=== PATIENT | female | born 1985 | race African-American/Black ===

== ENCOUNTER 2024-12-04 15:20 | Inpatient (IN) | payer MEDICAID, OTHER ==
[~2024-12-04] VITALS: Ht 160 cm; Wt 36.5 kg
--- NOTE | 2024-12-04 15:28 | ED.PDOC ---
History of Present Illness HPI Comments 39 year old female presents to the ED via EMS with a chief complaint of vaginal bleeding onset today (12/04/24). Per EMS, patient was at home, patient's boyfriend noticed patient had a diaper full of blood, blood was noticed on bed. Patient has PMHx bladder cancer, stage 4, received chemotherapy yesterday at [place], she goes 2 times a week every other week. Patient has been losing weight, according to boyfriend, last full meal was about 3 weeks ago. EMS also states patient appeared altered, confused. Upon ED arrival, patient is tachycardiac with 130 bpm. Denies chest pain, dizziness, nausea, vomiting, diarrhea, fevers. No other symptoms or modifying factors present at this time. 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 History Family History Family History: Reviewed,noncontributory to illness, No family hx of Cancer, No family hx of DM, No family hx of Heart attila, No family hx of HTN, No family hx ofKidney attila, No family hx of Liver attila, No family hx of Lung attila, No family hx of Stroke Social History Smoker: Non-Smoker Alcohol: Denies ETOH Use Drugs: Denies Drug Use Lives In: Home Constitutional: denies: chills, diaphoresis, fatigue, fever, malaise, sweats, weakness, others EENTM: denies: blurred vision, double vision, ear bleeding, ear discharge, ear drainage, ear pain, ear ringing, eye pain, eye redness, hearing loss, mouth pain, mouth swelling, nasal discharge, nose bleeding, nose congestion, nose pain, photophobia, tearing, throat pain, throat swelling, voice changes, others Respiratory: denies: cough, hemoptysis, orthopnea, SOB at rest, shortness of breath, SOB with excertion, stridor, wheezing, others Cardiovascular: denies: chest pain, dizzy spells, diaphoresis, Dyspnea on exertion, edema, irregular heart beat, left arm pain, lightheadedness, palpitations, PND, syncope, others Gastrointestinal: denies: abdomen distended, abdominal pain, blood streaked bowels, constipated, diarrhea, dysphagia, difficulty swallowing, hematemesis, melena, nausea, poor appetite, poor fluid intake, rectal bleeding, rectal pain, vomiting, others Genitourinary: reports: abnormal vagina bleeding; denies: burning, dyspareunia, dysuria, flank pain, frequency, hematuria, incontinence, pain, , vagina discharge, urgency, others Neurological: denies: dizziness, fainting, headache, left sided numbness, left sided weakness, numbness, paresthesia, pre-existing deficit, right sided numbness, right sided weakness, seizure, speech problems, tingling, tremors, weakness, others Musculoskeletal: reports: others (LT leg swelling); denies: back pain, gout, joint pain, joint swelling, muscle pain, muscle stiffness, neck pain Integumetry: denies: bruises, change in color, change in hair/nails, dryness, laceration, lesions, lumps, rash, wounds, others Allergic/Immunocompromised: denies: Difficulty Healing, Frequent Infections, Hives, Itching, others Hematologic/Lymphatic: denies: anemia, blood clots, easy bleeding, easy bruising, swollen glands, others Endocrine: denies: excessive hunger, excessive sweating, excessive thirst, excessive urination, flushing, intolerance to cold, intolerance to heat, unexplained weight gain, unexplained weight loss, others Psychiatric: denies: anxiety, bipolar disorder, depression, hopeless, panic disorder, schizophrenia, sleepless, suicidal, others All Other Systems: Reviewed and Negative Physical Exam General Appearance: Thin HEENT: Normal ENT Inspection, Pharynx Normal, TMs Normal Neck: Full Range of Motion, Non-Tender, Normal, Normal Inspection Respiratory: Chest Non-Tender, Lungs Clear, No Accessory Muscle Use, No Respiratory Distress, Normal Breath Sounds Cardiovascular: No Edema, No JVD, No Murmur, No Gallop, Normal Peripheral Pulses, Regular Rate/Rhythm Breast Exam: Deferred Gastrointestinal: No Organomegaly, Non Tender, No Pulsatile Mass, Normal Bowel Sounds, Soft Genitalia: Deferred Pelvic: Deferred Rectal: Deferred Extremities: No calf tenderness, Normal capillary refill, No pedal edema, Swelling (Left lower extremity) Musculoskeletal : Apperance: Normal Neurologic: Alert, vertical mill operator II-XII nml as Tested, No Motor Deficits, Normal Affect, Normal Mood, No Sensory Deficits Cerebellar Function: NOT DONE Reflexes: NOT DONE Skin: Dry, Normal Color, Warm Peripheral Pulses: 3+ Radial (R), 3+ Radial (L) Lymphatic: No Adenopathy Was a procedure done? Was a procedure done?: No EKG EKG : Pulse Rate (adult): 130 Cardiac Rhythm: ST Differential Dx Considerations may include: Sepsis Electrolyte imbalance X-Ray, Labs, Meds, VS Vital Signs Date Time Temp Pulse Resp B/P (MAP) Pulse Ox O2 Delivery O2 Flow Rate FiO2 12/04/24 15:40 96 11 99 Room Air* 0 21 12/04/24 15:29 98.9 136 22 103/97 98 98.9 12/04/24 15:28 130 12/04/24 15:23 130 Lab Test 12/04/24 15:50 Range/Units White Blood Count 36.7 *H 4.4-10.8 10^3/uL Red Blood Count 3.03 L 4.0-5.20 10^6/uL Hemoglobin 7.9 L 12.2-16.2 g/dL Hematocrit 26.4 L 36.0-46.0 % Mean Corpuscular Volume 87.3 80.0-100.0 fL Mean Corpuscular Hemoglobin 26.2 L 28.0-32.0 pg Mean Corpuscular Hemoglobin Concent 30.0 L 32.0-36.0 g/dL Red Cell Distribution Width 17.8 H 11.8-14.3 % Platelet Count 723 H 140-450 10^3/uL Mean Platelet Volume 6.8 L 6.9-10.8 fL Neutrophils (%) (Auto) 37.0-80.0 % Lymphocytes (%) (Auto) 10.0-50.0 % Monocytes (%) (Auto) 0.0-12.0 % Basophils (%) (Auto) 0.0-2.0 % Neutrophils # (Auto) 1.6-8.6 10 ^3/uL Lymphocytes # (Auto) 0.4-5.4 10 ^3/uL Monocytes # (Auto) 0-1.3 10 ^3/uL Differential Total Cells Counted Pending Neutrophils % (Manual) Pending Band Neutrophils % (Manual) Pending Lymphocytes % (Manual) Pending Monocytes % (Manual) Pending Eosinophils % (Manual) Pending Basophils % (Manual) Pending Metamyelocytes % (manual) Pending Myelocytes % (Manual) Pending Promyelocytes % (Manual) Pending Blast Cells % (Manual) Pending Reactive Lymphocytes Pending Platelet Estimate Pending Sodium Level 134 L 136-145 mmol/L Potassium Level 3.9 3.5-5.1 mmol/L Chloride Level 110 H 98-107 mmol/L Carbon Dioxide Level 15 L 20-31 mmol/L Anion Gap 9 5-15 Blood Urea Nitrogen 33 H 9-23 mg/dL Creatinine 2.16 H 0.550-1.02 mg/dL Glomerular Filtration Rate Calc 29 >90 mL/min BUN/Creatinine Ratio 15.3 10.0-20.0 Serum Glucose 73 L 74-106 mg/dL Lactic Acid Level 2.2 *H 0.4-2.0 mmol/L Calcium Level 10.6 H 8.7-10.4 mg/dL Current Medications Medications (Trade) Dose Ordered Sig/Fred Route Start Time Stop Time Status Last Admin Ceftriaxone Sodium 50 ml @ 100 mls/hr ONCE ONCE IV 12/04/24 15:30 12/04/24 16:00 DC 12/04/24 16:05 Clindamycin Phosphate 50 ml @ 50 mls/hr ONCE ONCE IV 12/04/24 15:30 12/04/24 16:29 DC 12/04/24 16:05 Sodium Chloride 1,000 ml @ 1,000 mls/hr Q1H ONCE IV 12/04/24 15:30 12/04/24 16:29 DC 12/04/24 16:06 Patient answering questions. Tachycardia. Possible sepsis. Establish intravenous access. Was given fluids. Sepsis protocol. Failure to thrive. Reviewed her history. Continue to monitor. Time of 1ST Reevaluation: 15:50 Reevaluation 1ST: Unchanged Patient Education/Counseling: Diagnosis, Treatment, Prognosis Family Education/Counseling: No Family Present SEPSIS Sepsis Screen Physician Orders Blood Culture (12/04/24 15:22) Complete Blood Count (12/04/24 15:22) Chest Portable (12/04/24 15:28) Urinalysis (12/04/24 15:22) Sodium Chloride 0.9% (12/04/24 15:30) Electrocardigram (12/04/24 15:26) Manual Differential (12/04/24 15:50) Vital Signs Date Time Temp Pulse Resp B/P (MAP) Pulse Ox O2 Delivery O2 Flow Rate FiO2 12/04/24 15:40 96 11 99 Room Air* 0 21 12/04/24 15:29 98.9 136 22 103/97 98 98.9 12/04/24 15:28 130 12/04/24 15:23 130 Laboratory Tests Test 12/04/24 15:50 Lactic Acid Level 2.2 mmol/L (0.4-2.0) *H White Blood Count 36.7 10^3/uL (4.4-10.8) *H Medications Medications Dose Ordered Sig/Fred Route Start Time Stop Time Status Last Admin Dose Admin Ceftriaxone Sodium 50 ml @ 100 mls/hr ONCE ONCE IV 12/04/24 15:30 12/04/24 16:00 DC 12/04/24 16:05 Clindamycin Phosphate 50 ml @ 50 mls/hr ONCE ONCE IV 12/04/24 15:30 12/04/24 16:29 DC 12/04/24 16:05 Sodium Chloride 1,000 ml @ 1,000 mls/hr Q1H ONCE IV 12/04/24 15:30 12/04/24 16:29 DC 12/04/24 16:06 Departure 1 Departure Time of Disposition: 15:36 Impression: Primary Impression: Failure to thrive Qualified Codes: R62.7 - Adult failure to thrive Additional Impression: Sepsis, unspecified organism Qualified Codes: A41.9 - Sepsis, unspecified organism Disposition: ADMITTED INPATIENT Admit to: Med Surg Condition: Guarded Critical Care Note Critical Care Time?: Yes (90 min-critical care time only) Stability Stability form required: No Heart Score Heart Score: Heart Score Response (Comments) Value History N/A 0 EKG N/A 0 Age N/A 0 Risk Factors N/A 0 Troponin N/A 0 Total 0 I personally scribed for SU BOLIVAR MD ([email or web address]) on 12/04/24 at 15:28. Electronically submitted by Mary Alarcon ([email or web address]). SU BOLIVAR MD Dec 04, 2024 15:28
[2024-12-04 15:40] VITALS: PULSE 96; RESP 11; O2SAT 99
--- NOTE | 2024-12-04 15:59 | DVH ---
CHEST RADIOGRAPH Indication: sob Technique: Single frontal view of the chest was obtained Comparison: None FINDINGS: Lines and Tubes: None Lungs: No focal consolidation. Pleura: No effusion. No pneumothorax. Cardiomediastinal contours: Unremarkable Bones: No acute osseous abnormality. IMPRESSION: 1. No acute cardiopulmonary disease.
[2024-12-04] MEDS: cefTRIAXone 1GM/50ML D5W 50 ML IV ONE (16:05)
[2024-12-04] MEDS: CLINDAMYCIN 300MG IV 50 ML IV ONE (16:05)
[2024-12-04] MEDS: SODIUM CHLORIDE 0.9% 1,000 ML IV ONE ×3 (16:06→21:10)
[2024-12-04 16:15] LABS: Hematocrit 26.4 % (36.0-46.0); Hemoglobin 7.9 g/dL (12.2-16.2); Mean Corpuscular Hemoglobin 26.2 pg (28.0-32.0); Mean Corpuscular Volume 87.3 fL (80.0-100.0)
[2024-12-04 16:19] LABS: Potassium 3.9 mmol/L (3.5-5.1)
[2024-12-04 16:20] LABS: Anion Gap 9 (5-15); Calcium 10.6 mg/dL (8.7-10.4); Carbon Dioxide 15 mmol/L (20-31); Chloride 110 mmol/L (98-107); Sodium 134 mmol/L (136-145)
[2024-12-04 16:25] LABS: BUN/Creatinine Ratio 15.3 (10.0-20.0)
[2024-12-04 16:31] LABS: Blood Urea Nitrogen 33 mg/dL (9-23); Glucose 73 mg/dL (74-106)
[2024-12-04 16:33] LABS: Lactic Acid w/Reflex 2.2 mmol/L (0.4-2.0)
[2024-12-04 18:39] LABS: Total Cells Counted 100.0 (100)
--- NOTE | 2024-12-04 19:21 | DVH ---
LEFT lower extremity venous duplex Clinical History: dvt Comparison: None Technique: Duplex Doppler evaluation of the deep venous systems of LEFT lower extremities from the common femora l veins to the popliteal veins including color Doppler and spectral/pulsed waveform analysis was perf ormed. Findings: LEFT SIDE: LEFT INGUINAL AREAS A LARGE COMPLEX MASS MEASURING 6 x 5.5 x 3.1 cm. May represent a hematoma. Dr. Carlos estes is aware of the findings. The common femoral vein demonstrates nonocclusive thrombus in the left inguinal area compressing comm on femoral vein. Blood flow demonstrates rouleaux flow There is compressibility/patency of the great saphenous vein at the proximal thigh. The femoral vein demonstrates appropriate compressibility and waveform variability. The deep femoral vein demonstrates appropriate compressibility and waveform variability. The popliteal vein demonstrates appropriate compressibility and waveform variability. There is normal compressibility at the tibioperoneal trunk. Impression: 1. No left femoropopliteal venous thrombosis. 2. Large 6 x 5.3 x 3.1 cm complex mass anterior medial to the left common femoral vein. 3. Dr. Bear is aware of findings.
[2024-12-04 19:50] VITALS: PULSE 100; RESP 12; O2SAT 90
[2024-12-05] MEDS: SODIUM CHLORIDE 0.9% 1,000 ML IV ONE (00:08)
--- NOTE | 2024-12-05 00:56 | DVHHPRES ---
History of Present Illness Resident Creating Document: SELMA CHEN RESIDENT History of Present Illness Joyce Santo is a 39 year old female, with past medical history of bladder carcinoma (Stage 4) and DVT. The patient was brought to the ED via EMS with a chief complaint of 1 day of abundant vaginal bleeding with concomitant general weakness, lethargy and confusion. The patient is a poor historian. Per EMS, patient was at home, patient's boyfriend noticed patient had a diaper full of blood, blood was noticed on bed. The patient is received chemotherapy twice a week at [facility]. The patient denies fever, nausea, vomiting, diarrhea, sick contacts or other symptoms. On initial evaluation in the ED the patient was found tachycardiac HR 130 bpm, WBC: 36.7x10e3/ul, Lactic acid 2.2, Hb 7.9mg/dl. Ms. Ernst is a [facility] patient, the [facility]'s ER staff requested authorization to admit the patient to [facility] due to her unstable condition (Authorization [id number]). Past Medical History Bladder carcinoma, Stage 4 Past Surgical History: Other (Bladder surgery due to bladder carcinoma. ) Family History: None Smoke: No ALCOHOL: none Drugs: None Lives: with Family Review of Systems Constitutional: Yes: Weakness, Malaise; No: Fever, Chills, Sweats, Other Eyes: No: Pain, Vision change, Conjunctivae inflammation, Eyelid inflammation, Other, Redness ENT: No: Ear pain, Ear discharge, Nose pain, Nose discharge, Nose congestion, Mouth pain, Mouth swelling, Throat pain, Throat swelling, Other Respiratory: No: Cough, Dry, Shortness of breath, SOB with excertion, Wheezing, Hemoptysis, Pleuritic Pain, Sputum, Wheezing, Other Cardiovascular: No: Chest Pain, Palpitations, Orthopnea, Paroxysmal Noc. Dyspnea, Edema, Lt Headedness, Other Gastrointestinal: No: Nausea, Vomiting, Abdominal Pain, Diarrhea, Constipation, Melena, Hematochezia, Other Genitourinary: No Dysuria, No Frequency, No Incontinence, No Hematuria, No Retention; Other (Vaginal bleeding) Musculoskeletal: No: other, neck pain, shoulder pain, arm pain, back pain, hand pain, leg pain, foot pain Skin: No: Rash, Lesions, Jaundice, Bruising, Other Neurological: Weakness, Confusion; No: Numbness, Incoordination, Change in speech, Seizures, Other Allergies: Coded Allergies: NO KNOWN ALLERGIES (Unverified , 12/04/24) Medications Current Medications Medications Dose Ordered Sig/Fred Route Start Time Stop Time Status Last Admin Dose Admin Pantoprazole Sodium 40 mg DAILY IV 12/05/24 10:00 Exam Vital Signs Vital Signs Date Time Temp Pulse Resp B/P (MAP) Pulse Ox O2 Delivery O2 Flow Rate FiO2 12/04/24 20:00 94 12/04/24 19:50 98.5 10 98/61 (73) 100 98.5 12/04/24 19:50 Room Air* 0 21 General Appearance: Alert, mild distress, Other (oriented in person only. ) HEENT: Atraumatic, Mucous membr. moist/pink Respiratory: Clear to auscultation, Normal air movement Cardiovascular: Regular rate, Normal S1, Normal S2, No murmurs Abdominal: Normal bowel sounds, Soft, No tenderness, No hepatospenomegaly Extremities: No clubbing, No cyanosis, No edema, Normal pulses Skin: No rashes, No breakdown Neuro: Other (Cofused, does not follows directions. ) Psych/Mental Status: Other (altered metal status, lethargic, responds to name, but does not follows directions. ) Labs/Xrays Labs Test 12/04/24 23:59 12/04/24 18:02 12/04/24 15:50 Range/Units Lactic Acid Level 1.2 0.4-2.0 mmol/L White Blood Count 36.7 *H 4.4-10.8 10^3/uL Red Blood Count 3.03 L 4.0-5.20 10^6/uL Hemoglobin 7.9 L 12.2-16.2 g/dL Hematocrit 26.4 L 36.0-46.0 % Mean Corpuscular Volume 87.3 80.0-100.0 fL Mean Corpuscular Hemoglobin 26.2 L 28.0-32.0 pg Mean Corpuscular Hemoglobin Concent 30.0 L 32.0-36.0 g/dL Red Cell Distribution Width 17.8 H 11.8-14.3 % Platelet Count 723 H 140-450 10^3/uL Mean Platelet Volume 6.8 L 6.9-10.8 fL Neutrophils (%) (Auto) 37.0-80.0 % Lymphocytes (%) (Auto) 10.0-50.0 % Monocytes (%) (Auto) 0.0-12.0 % Basophils (%) (Auto) 0.0-2.0 % Neutrophils # (Auto) 1.6-8.6 10 ^3/uL Lymphocytes # (Auto) 0.4-5.4 10 ^3/uL Monocytes # (Auto) 0-1.3 10 ^3/uL Differential Total Cells Counted 100.0 100 Neutrophils % (Manual) 68 37.0-80.0 Band Neutrophils % (Manual) 19 Lymphocytes % (Manual) 7 L 10.0-50.0 Monocytes % (Manual) 6 0-12 Eosinophils % (Manual) 0 0-7 Basophils % (Manual) 0 0.0-2.0 Metamyelocytes % (manual) 0 Myelocytes % (Manual) 0 Promyelocytes % (Manual) 0 Blast Cells % (Manual) 0 Reactive Lymphocytes 0 Platelet Estimate Increased Sodium Level 134 L 136-145 mmol/L Potassium Level 3.9 3.5-5.1 mmol/L Chloride Level 110 H 98-107 mmol/L Carbon Dioxide Level 15 L 20-31 mmol/L Anion Gap 9 5-15 Blood Urea Nitrogen 33 H 9-23 mg/dL Creatinine 2.16 H 0.550-1.02 mg/dL Glomerular Filtration Rate Calc 29 >90 mL/min BUN/Creatinine Ratio 15.3 10.0-20.0 Serum Glucose 73 L 74-106 mg/dL Calcium Level 10.6 H 8.7-10.4 mg/dL SEPSIS Sepsis Screen Date sepsis recognized/suspect: Dec 04, 2024 Time Sepsis recognized/suspect: 1555 Recent Procedure: No On Antibiotic Therapy: Yes Respiratory Rate >20: No Heart Rate >90: Yes Temp<36 C (96.8 F) or >38.3 C: No SBP <90 or MAP <65 mmHG: No New Acute Mental Status Change: Yes Is the patient on CPAP, BIPAP,: No Physician Orders Lt Lower Dvt (12/04/24 18:01) Admit (12/04/24 23:42) Code Status (12/04/24 23:42) Vital Signs .PER UNIT PROTOCOL (12/04/24 23:42) Review Orders With Adm. (12/04/24 23:42) Maintain Bed Rest (12/04/24 23:42) Regular Diet (12/05/24 Breakfast) Notify Md Of Changes From Base (12/04/24 23:42) Advance Directive (12/04/24 23:42) Patient Condition (12/04/24 23:42) Allergies (12/04/24 23:42) Notify Md Of Changes From Base (12/04/24 23:42) Arrt Technologist For 24 Hours (12/04/24 23:42) Pantoprazole (Protonix) (12/05/24 10:00) Urine Bacterial Culture (12/04/24 23:42) Covid19 Antigen Autumn (12/04/24 ) Rapid Influenza A&B (12/04/24 23:42) Strict I&O (12/04/24 ) Sodium Chloride 0.9% (12/04/24 23:45) Ammonia (12/04/24 23:42) Vital Signs Date Time Temp Pulse Resp B/P (MAP) Pulse Ox O2 Delivery O2 Flow Rate FiO2 12/04/24 20:00 94 12/04/24 19:50 98.5 100 10 98/61 (73) 100 98.5 12/04/24 19:50 100 12 90 Room Air* 0 21 12/04/24 18:00 100 10 98/61 (73) 100 Laboratory Tests Test 12/04/24 15:50 12/04/24 18:02 Lactic Acid Level 2.2 mmol/L (0.4-2.0) *H 1.2 mmol/L (0.4-2.0) White Blood Count 36.7 10^3/uL (4.4-10.8) *H Medications Medications Dose Ordered Sig/Fred Route Start Time Stop Time Status Last Admin Dose Admin Ceftriaxone Sodium 50 ml @ 100 mls/hr ONCE ONCE IV 12/04/24 15:30 12/04/24 16:00 DC 12/04/24 16:05 100 MLS/HR Clindamycin Phosphate 50 ml @ 50 mls/hr ONCE ONCE IV 12/04/24 15:30 12/04/24 16:29 DC 12/04/24 16:05 50 MLS/HR Sodium Chloride 1,000 ml @ 75 mls/hr [id number] ONCE IV 12/04/24 23:45 12/05/24 13:04 12/05/24 00:08 75 MLS/HR Sodium Chloride 1,000 ml @ 150 mls/hr [id number] ONCE IV 12/04/24 15:30 12/04/24 22:09 DC 12/04/24 21:10 150 MLS/HR Sodium Chloride 1,000 ml @ 1,000 mls/hr Q1H ONCE IV 12/04/24 15:30 12/04/24 16:29 DC 12/04/24 16:06 1,000 MLS/HR Sodium Chloride 1,000 ml @ 1,000 mls/hr Q1H ONCE IV 12/04/24 18:15 12/04/24 19:14 DC 12/04/24 18:19 1,000 MLS/HR Assessment/Plan Assessment/Plan #Severe Sepsis, with AOD, unspecified organism. WBC 36.7x10e3/ul Tachycardic Lactic acid 2.1 IV fluids Unasyn IV Clindamycin IV Blood cultures Urine cultures #CHUY due to VMN Creatinine:2.16 BUN 33 Avoid nephrotoxic drugs IV fluids Monitor Creatinine and BUN #Severe anemia HB 7.9 Type and screen H&H CBC #DVT ruled out Doppler US negative for thrombosis. #Bladder Carcinoma Stage 4 Receiving chemotherapy at [facility]. NPO diet Eliquist on hold due to vaginal bleeding PUD prophylaxis Protonic Goals of care discussed with the patient > 35 min. Discussed plan of care with Dr. Gupta Code status: Full code PCP: At [facility], no remember the name Plan discussed with: Patient, the patient agrees with the plan. Plan discussed with: Patient My Orders Orders - SELMA CHEN RESIDENT Procedure Category Date Status Time Admit ADMIT 12/04/24 Transmitted 23:42 Code Status CODE 12/04/24 Transmitted 23:42 Vital Signs MONICO 12/04/24 In Process 23:42 Review Orders With MONICO 12/04/24 In Process Adm. 23:42 Maintain Bed Rest MONICO 12/04/24 In Process 23:42 Regular Diet DIET 12/05/24 Transmitted Breakfast Notify Md Of Changes MONICO 12/04/24 In Process From Base 23:42 Advance Directive MONICO 12/04/24 In Process 23:42 Patient Condition ORDERS 12/04/24 Transmitted 23:42 Allergies MONICO 12/04/24 In Process 23:42 Notify Md Of Changes MONICO 12/04/24 In Process From Base 23:42 Arrt Technologist For MONICO 12/04/24 In Process 24 Hours 23:42 Pantoprazole PHA 12/05/24 In Process (Protonix) 10:00 Urine Bacterial HODAN 12/04/24 Logged Culture 23:42 Covid19 Antigen [facility] LAB 12/04/24 Logged Rapid Influenza A&B LAB 12/04/24 Logged 23:42 Strict I&O ED NURSING 12/04/24 Transmitted Sodium Chloride 0.9% PHA 12/04/24 In Process 23:45 Ammonia LAB 12/04/24 In Process 23:42 Billing Provider: SANIYA GUPTA MD Common Visit Codes: [id number] INP/OBS CARE (HIGH) Secondary Visit Codes: [id number] CARE PLAN 30 MINUTES SELMA CHEN RESIDENT Dec 05, 2024 00:56
[2024-12-05] MEDS: D5W 5% 1,000 ML IV SCH (01:47)
[2024-12-05] MEDS: AMPICILLIN & SULBACTAM SODIUM 3 GM in SODIUM CHL 0.9% 100 ML IV SCH (09:09)
[2024-12-05] MEDS: CLINDAMYCIN 300MG IV 50 ML IV SCH (09:16)
[2024-12-05 09:38] LABS: Hematocrit 25.1 % (36.0-46.0); Hemoglobin 7.4 g/dL (12.2-16.2); Mean Corpuscular Hemoglobin 26.6 pg (28.0-32.0); Mean Corpuscular Volume 90.9 fL (80.0-100.0); Nucleated Red Blood Cells % 0.1 %
[2024-12-05 09:53] LABS: Alkaline Phosphatase 113 U/L (46-116); Anion Gap 9 (5-15); BUN/Creatinine Ratio 15.2 (10.0-20.0); Calcium 10.2 mg/dL (8.7-10.4); Potassium 3.8 mmol/L (3.5-5.1); Sodium 137 mmol/L (136-145); Total Protein 6.1 g/dL (5.7-8.2)
[2024-12-05 09:56] LABS: Alanine Aminotransferase < 9 U/L (7-40); Albumin 2.5 g/dL (3.2-4.8); Bilirubin, Total 0.2 mg/dL (0.2-1.0); Blood Urea Nitrogen 29 mg/dL (9-23); Carbon Dioxide 13 mmol/L (20-31); Chloride 115 mmol/L (98-107); Glucose 65 mg/dL (74-106)
[2024-12-05] MEDS: PANTOPRAZOLE 40 MG/10 ML VIAL INJ IV SCH (09:59)
[2024-12-05 11:21] LABS: COVID19 ANTIGEN SOFIA FIA NEGATIVE (NEGATIVE)
[2024-12-05 11:51] VITALS: PULSE 90; RESP 12; O2SAT 98
--- NOTE | 2024-12-05 12:52 | DVHPN2 ---
Reviewed: Care Plan, H&P, Labs, Medications, Previous Orders, Radiology Changes from previous H/P or p: No Changes, Changes Eyes: No Pain, No Vision change, No Conjunctivae inflammation, No Eyelid inflammation, No Other, No Redness ENT: No Ear pain, No Ear discharge, No Nose pain, No Nose discharge, No Nose congestion, No Mouth pain, No Mouth swelling, No Throat pain, No Throat swelling, No Other Cardiovascular: No Chest Pain, No Palpitations, No Orthopnea, No Paroxysmal Noc. Dyspnea, No Edema, No Lt Headedness, No Other Respiratory: No Cough, No Dry, No Shortness of breath, No SOB with excertion, No Wheezing, No Hemoptysis, No Pleuritic Pain, No Sputum, No Other Gastrointestinal: No Nausea, No Vomiting, No Abdominal Pain, No Diarrhea, No Constipation, No Melena, No Hematochezia, No Other Genitourinary: No Dysuria, No Frequency, No Incontinence, No Hematuria, No Retention; Other (Vaginal bleeding) Musculoskeletal: No other, No neck pain, No shoulder pain, No arm pain, No back pain, No hand pain, No leg pain, No foot pain Skin: No Rash, No Lesions, No Jaundice, No Bruising, No Other Objective Vitals Vital Signs Date Time Temp Pulse Resp B/P (MAP) Pulse Ox O2 Delivery O2 Flow Rate FiO2 12/05/24 11:51 90 12 98 Room Air* 0 21 12/05/24 11:00 94/67 (76) 12/04/24 19:50 98.5 98.5 Intake/Output Intake and Output 12/05/24 07:00 Intake Total 1100 ml Balance 1100 ml Intake IV Total 1100 ml Medications Current Medications Medications Dose Ordered Sig/Fred Route Start Time Stop Time Status Last Admin Dose Admin Pantoprazole Sodium 40 mg DAILY IV 12/05/24 10:00 12/05/24 09:59 40 MG Dextrose 1,000 ml @ 75 mls/hr [id number] IV 12/05/24 01:00 12/05/24 01:47 75 MLS/HR Ampicillin Sodium/ Sulbactam Sodium 3 gm/Sodium Chloride 100 ml @ 100 mls/hr Q12H IV 12/05/24 03:30 Clindamycin Phosphate 50 ml @ 50 mls/hr Q8HR IV 12/05/24 06:00 12/05/24 09:16 50 MLS/HR Laboratory Results Laboratory Tests 12/05/24 09:20 Chemistry Test 12/04/24 15:50 12/05/24 09:20 Calcium Level 10.6 mg/dL (8.7-10.4) H 10.2 mg/dL (8.7-10.4) Albumin 2.5 g/dL (3.2-4.8) L Total Protein 6.1 g/dL (5.7-8.2) LFT Test 12/05/24 09:20 Alanine Aminotransferase (ALT) < 9 U/L (7-40) Alkaline Phosphatase 113 U/L (46-116) Aspartate Amino Transferase (AST) 14 U/L (13-40) Total Bilirubin 0.2 mg/dL (0.2-1.0) Labs and/or images reviewed: Labs reviewed by me, Image(s) reviewed by me Assessment/Plan Assessment/Plan Severe sepsis unknown etiology: Blood cultures urine cultures continue Unasyn and clindamycin CHUY due to VMN Severe anemia hemoglobin 7.9 History of stage IV bladder cancer under chemo at [place] urology consult by Dr. Larson Acute lactic acidosis with lactic acid 2.2 Vaginal bleeding consult for Patient not stable for transfer to [facility] as the patient currently has severe sepsis Check serum beta HCG Plan discussed with: Patient My Orders Orders - LESA REID MD Procedure Category Date Status Time Communication Order ORDERS 12/05/24 Verified 12:44 Date of Service: Dec 05, 2024 Billing Provider: LESA REID MD Common Visit Codes: [id number] INP/OBS CARE(HIGH) LESA REID MD Dec 05, 2024 12:52
[2024-12-05] MEDS: HYDROcodone-ACET 10/325MG TAB PO PRN (13:48)
[2024-12-05 16:21] LABS: Urine Protein, UAD Negative (Negative)
[2024-12-05 19:30] VITALS: PULSE 96; RESP 16; O2SAT 99
--- NOTE | 2024-12-05 21:05 | DVH ---
CT BRAIN WITHOUT CONTRAST HISTORY: ALOC TECHNIQUE: Axial scans were obtained from the skull base through the vertex without contrast. Sagitta l and coronal reformats were generated. One or more of the following radiation dose reduction techniq ues were used for this examination: automated exposure control, adjustment of the mA and/or kV accord ing to patient size, use of iterative reconstruction technique. COMPARISON: None FINDINGS: No acute intracranial hemorrhage or evidence of large vessel territorial infarction identified at thi s time. No midline shift. The basilar cisterns are patent. Lopez-white differentiation appears relat ively preserved. The visualized paranasal sinuses and mastoid air cells are clear. No grossly displaced calvarial abno rmalities identified. IMPRESSION: No acute intracranial findings.
--- NOTE | 2024-12-05 21:32 | DVHINCON2 ---
REASON FOR CONSULTATION: Vaginal bleeding. HISTORY OF PRESENT ILLNESS: The patient is a 39-year-old 1, para 1. who presented to the Emergency Room with 1-day onset of heavy vaginal bleeding. The patient has bladder cancer stage IV and DVT. The patient is on Eliquis. 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 The patient recently had chemo. The patient belongs to [facility], but due to sepsis, the patient is being admitted. Family is by bedside. History is obtained from family who do not know everything about the patient. The patient is also in isolation. According to the family, her last Pap was many years ago. PAST MEDICAL HISTORY: Bladder cancer, DVT. PAST SURGICAL HISTORY: According to the family, some surgery on bladder. OBSTETRIC AND GYNECOLOGIC HISTORY: One normal vaginal delivery. FAMILY HISTORY: Not applicable. ALLERGIES: No known drug allergies. REVIEW OF SYSTEMS: Consistent with HPI. PHYSICAL EXAMINATION: VITAL SIGNS: Stable, afebrile. GENERAL APPEARANCE: The patient is confused. CARDIOVASCULAR: Tachy, regular. LUNGS: Clear to auscultation. ABDOMEN: Soft, nontender. PELVIC: Some vaginal bleeding noted. Does not appear to be excessive at this point. EXTREMITIES: No clubbing, cyanosis, or edema. IMPRESSION: * Bladder cancer, stage IV. * DVT, on Eliquis. * Vaginal bleeding due to Eliquis. RECOMMENDATION: The patient has complex medical and oncological history. The patient needs to be receiving supportive care at this point. Recommend the patient to be under Oncology care. At this point, in order to stop the bleeding, the patient needs to be off Eliquis. Recommend pelvic ultrasound. Thank you very much for this consultation. DO MORRIS Rose TID: [id number] RECEIPT: [id number]
[2024-12-06] VITALS (8 sets, daily range): BP systolic 98–110; BP diastolic 63–81; PULSE 80–101; RESP 11–20; TEMP 97.5–98; O2SAT 98–100
[2024-12-06] MEDS: D5W 5% 1,000 ML IV STA ×2 (03:27→03:28)
[2024-12-06] MEDS: D5W 5% 500 ML IV STA ×2 (03:29→04:17)
[2024-12-06] MEDS ORDERED: DEXTROSE (50%) 50ML SYRG IV PRN (03:30)
[2024-12-06] MEDS: ALBUMIN 25% 100 ML IV ONE (03:36)
[2024-12-06] MEDS: InsuLIN REG 1unit/0.01ml Soln (100units/ml) SC SCH (04:00)
[2024-12-06] MEDS: ACCU-CHEK COMFORT CURVE STRIP VI SCH (04:16)
--- NOTE | 2024-12-06 09:11 | DVHPN2 ---
Visit Coding OBGYN Date of Service: Dec 05, 2024 Billing Provider: JEFF HENDERSON DO AUTOGRAPHER Common Visit Codes: [id number] SAME DATE (HIGH) AUTOGRAPHER Consultation Codes: [id number] CONSULT <110MIN JEFF HENDERSON DO Dec 06, 2024 09:11
[2024-12-06] MEDS: AMPICILLIN & SULBACTAM SODIUM 3 GM in SODIUM CHL 0.9% 100 ML IV SCH (09:12)
--- NOTE | 2024-12-06 11:32 | DVHINCON2 ---
Date of service: Dec 06, 2024 Referring Physician hospitalist Reason for Consultation bladder cancer History of Present Illness History Source: Patient, RN Notes, MD Notes, Old Records Exam Limitations: Clinical condition HPI 39 yo female with stage IV bladder cancer (dx 07/2024, no records available for review) presented with gross hematuria and/or vaginal bleed. HX of recurrent UTIs and BV. Was treated for trichomonas last year. Hx of high grade HPV and high risk sexual behavior. She is seen in ER bed 3 on contact ISO for hx of C Diff. pt is wearing diaper and is incontinent of stool and urine. According to records she was having diapers full of blood. She is arousable but difficult to communicate with as she is altered and lethargic. She keeps repeating "chemotherapy and radiation." She is under care of [facility] in [place]. There is no imaging for review because HCG was 34 however this is due to her malignancy. She is symptomatically anemic. She is in visible discomfort. Her abdomen is diffusely tender. No lower extremity edema. RN states she was straight cathed yesterday and it was pure blood output. Past Medical History Hemotology/Oncology: Anemia NOS, Cancer Renal/: UTI, Hematuria, Other (bladder cancer) Past Surgical History: Cystoscopy Review of Systems Constitutional: Malaise, Weakness, Weight loss Gastrointestinal: Nausea, Abdominal Pain, Abnormal Appetite Genitourinary: Incontinence, Hematuria, Pain Skin: Color change Hemotologic/Lymphatic: Easily bleeding, Anemia H&P Exam Vital Signs Vital Signs Date Time Temp Pulse Resp B/P (MAP) Pulse Ox O2 Delivery O2 Flow Rate FiO2 12/06/24 08:27 90 12/06/24 05:32 89/65 (73) 12/06/24 02:11 98.1 18 99 98.1 12/06/24 02:11 Room Air* 0 21 General Appeara: Cachetic, Moderate distress Pulmonary/Respiratory: Normal inspection Cardiovascular/Chest: Normal inspection Abdominal Exam: Soft Abdominal Pain Onset Location: Generalized abdomen Neuro/Mental St: Oriented, Lethargic Eye contact/ Speech: Cooperative, Decreased rate of speech Skin Exam: Pallor Labs/Xrays Labs Test 12/06/24 04:09 12/05/24 16:07 12/05/24 13:35 12/05/24 10:00 Range/Units Hemoglobin A1c 5.2 <5.7 % A1C Urine Color Colorless Yellow Urine Clarity Turbid H Clear Urine pH 5.5 5.0-9.0 Urine Specific [place] 1.006 1.001-1.035 Urine Protein Negative Negative Urine Ketones Negative Negative Urine Blood 3+ H Negative /uL Urine Nitrite Negative Negative Urine Bilirubin Negative Negative Urine Urobilinogen Normal Negative mg/dL Urine Leukocyte Esterase 1+ Negative /uL Urine Glucose Normal Normal mg/dL Stool Occult Blood Positive Negative Stool Occult Blood Sample #3 Negative Influenza Type A Antigen Negative Negative Influenza Type B Antigen Negative Negative SARS-CoV-2 Antigen (Rapid) Negative NEGATIVE Test 12/05/24 09:20 12/04/24 18:02 12/04/24 15:50 Range/Units White Blood Count 35.5 *H 4.4-10.8 10^3/uL Red Blood Count 2.76 L 4.0-5.20 10^6/uL Hemoglobin 7.4 L 12.2-16.2 g/dL Hematocrit 25.1 L 36.0-46.0 % Mean Corpuscular Volume 90.9 # 80.0-100.0 fL Mean Corpuscular Hemoglobin 26.6 L 28.0-32.0 pg Mean Corpuscular Hemoglobin Concent 29.3 L 32.0-36.0 g/dL Red Cell Distribution Width 18.5 H 11.8-14.3 % Platelet Count 569 H 140-450 10^3/uL Mean Platelet Volume 6.8 L 6.9-10.8 fL Neutrophils (%) (Auto) 95.1 H 37.0-80.0 % Lymphocytes (%) (Auto) 2.0 L 10.0-50.0 % Monocytes (%) (Auto) 2.2 0.0-12.0 % Eosinophils (%) (Auto) 0.4 0.0-7.0 % Basophils (%) (Auto) 0.3 0.0-2.0 % Neutrophils # (Auto) 33.8 H 1.6-8.6 10 ^3/uL Lymphocytes # (Auto) 0.7 0.4-5.4 10 ^3/uL Monocytes # (Auto) 0.8 0-1.3 10 ^3/uL Eosinophils # (Auto) 0.2 0-0.8 10 ^3/uL Basophils # (Auto) 0.1 0-0.2 10 ^3/uL Nucleated Red Blood Cells 0.1 % Sodium Level 137 136-145 mmol/L Potassium Level 3.8 3.5-5.1 mmol/L Chloride Level 115 H 98-107 mmol/L Carbon Dioxide Level 13 L 20-31 mmol/L Anion Gap 9 5-15 Blood Urea Nitrogen 29 H 9-23 mg/dL Creatinine 1.91 H 0.550-1.02 mg/dL Glomerular Filtration Rate Calc 34 >90 mL/min BUN/Creatinine Ratio 15.2 10.0-20.0 Serum Glucose 65 L 74-106 mg/dL Calcium Level 10.2 8.7-10.4 mg/dL Total Bilirubin 0.2 0.2-1.0 mg/dL Aspartate Amino Transferase (AST) 14 13-40 U/L Alanine Aminotransferase (ALT) < 9 7-40 U/L Alkaline Phosphatase 113 46-116 U/L Ammonia 32 11-32 umol/L Total Protein 6.1 5.7-8.2 g/dL Albumin 2.5 L 3.2-4.8 g/dL Beta HCG, Quantitative 34.6 H 1.5-4.2 mIU/mL Lactic Acid Level 1.2 0.4-2.0 mmol/L Differential Total Cells Counted 100.0 100 Neutrophils % (Manual) 68 37.0-80.0 Band Neutrophils % (Manual) 19 Lymphocytes % (Manual) 7 L 10.0-50.0 Monocytes % (Manual) 6 0-12 Eosinophils % (Manual) 0 0-7 Basophils % (Manual) 0 0.0-2.0 Metamyelocytes % (manual) 0 Myelocytes % (Manual) 0 Promyelocytes % (Manual) 0 Blast Cells % (Manual) 0 Reactive Lymphocytes 0 Platelet Estimate Increased Microbiology Date/Time Source Procedure Growth Status 12/04/24 15:45 Blood Blood Culture - Preliminary NO GROWTH AFTER 24 HOURS OF INCUBATION. 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 discussed with: Patient, Other EMY GOLDBERG NP Dec 06, 2024 11:32
--- NOTE | 2024-12-06 12:20 | DVHPN2 ---
Reviewed: Care Plan, H&P, Labs, Medications, Previous Orders, Radiology Changes from previous H/P or p: No Changes Eyes: No Pain, No Vision change, No Conjunctivae inflammation, No Eyelid inflammation, No Other, No Redness ENT: No Ear pain, No Ear discharge, No Nose pain, No Nose discharge, No Nose congestion, No Mouth pain, No Mouth swelling, No Throat pain, No Throat swelling, No Other Cardiovascular: No Chest Pain, No Palpitations, No Orthopnea, No Paroxysmal Noc. Dyspnea, No Edema, No Lt Headedness, No Other Respiratory: No Cough, No Dry, No Shortness of breath, No SOB with excertion, No Wheezing, No Hemoptysis, No Pleuritic Pain, No Sputum, No Other Gastrointestinal: No Nausea, No Vomiting, No Abdominal Pain, No Diarrhea, No Constipation, No Melena, No Hematochezia, No Other Genitourinary: No Dysuria, No Frequency, No Incontinence, No Hematuria, No Retention; Other (Vaginal bleeding) Musculoskeletal: No other, No neck pain, No shoulder pain, No arm pain, No back pain, No hand pain, No leg pain, No foot pain Skin: No Rash, No Lesions, No Jaundice, No Bruising, No Other Objective Vitals Vital Signs Date Time Temp Pulse Resp B/P (MAP) Pulse Ox O2 Delivery O2 Flow Rate FiO2 12/06/24 11:35 97 13 96/60 (72) 100 12/06/24 02:11 98.1 98.1 12/06/24 02:11 Room Air* 0 21 Intake/Output Intake and Output 12/06/24 07:00 Intake Total 1050 ml Balance 1050 ml Intake IV Total 1050 ml Medications Current Medications Medications Dose Ordered Sig/Fred Route Start Time Stop Time Status Last Admin Dose Admin Pantoprazole Sodium 40 mg DAILY IV 12/05/24 10:00 12/06/24 11:18 40 MG Dextrose 1,000 ml @ 75 mls/hr [id number] IV 12/05/24 01:00 12/06/24 03:40 75 MLS/HR Clindamycin Phosphate 50 ml @ 50 mls/hr Q8HR IV 12/05/24 06:00 12/06/24 05:01 50 MLS/HR Acetaminophen/ Hydrocodone Bitart 1 tab Q6HP PRN PO 12/05/24 13:00 12/05/24 23:25 1 TAB Ampicillin Sodium/ Sulbactam Sodium 3 gm/Sodium Chloride 100 ml @ 100 mls/hr Q12H IV 12/06/24 08:00 12/06/24 09:12 100 MLS/HR Diagnostic Test (Pha) 1 strip IQ4HR 12/06/24 04:00 12/06/24 09:13 1 STRIP Insulin Human Regular IQ4HR SC 12/06/24 04:00 Dextrose 50 ml UD PRN IV 12/06/24 03:30 Laboratory Results Laboratory Tests 12/05/24 09:20 HgA1c, TSH Test 12/06/24 04:09 Hemoglobin A1c 5.2 % A1C (<5.7) Urinalysis Test 12/05/24 16:07 Urine Color Colorless (Yellow) Urine Clarity Turbid (Clear) H Urine pH 5.5 (5.0-9.0) Urine Specific [place] 1.006 (1.001-1.035) Urine Protein Negative (Negative) Urine Ketones Negative (Negative) Urine Blood 3+ /uL (Negative) H Urine Nitrite Negative (Negative) Urine Bilirubin Negative (Negative) Urine Urobilinogen Normal mg/dL (Negative) Urine Leukocyte Esterase 1+ /uL (Negative) Urine Glucose Normal mg/dL (Normal) Microbiology Microbiology Date/Time Source Procedure Growth Status 12/04/24 15:45 Blood Blood Culture - Preliminary NO GROWTH AFTER 24 HOURS OF INCUBATION. Resulted Labs and/or images reviewed: Labs reviewed by me, Image(s) reviewed by me Assessment/Plan Assessment/Plan Severe sepsis unknown etiology: Blood cultures negative, urine cultures pending, continue Unasyn and clindamycin CHUY due to VMN Severe anemia hemoglobin 7.9 History of stage IV bladder cancer under chemo at [place] urology consult by Dr. Larson appreciated Acute lactic acidosis with lactic acid 2.2 Vaginal bleeding consult for pelvic ultrasound ordered Patient not stable for transfer to [place] as the patient currently has severe sepsis Check serum beta HCG Plan discussed with: Patient My Orders Orders - LESA REID MD Procedure Category Date Status Time Communication Order ORDERS 12/05/24 Transmitted 12:44 * Frit Mixer Consultation CONS 12/05/24 Transmitted 12:48 * Urology Consult CONS 12/05/24 Transmitted 12:49 Hydrocodone-Acet PHA 12/05/24 In Process 10/325mg Tab ([place] 13:00 Soft Diet DIET 12/05/24 Transmitted [place] Without Contrast CT 12/05/24 Resulted 16:13 Date of Service: Dec 06, 2024 Billing Provider: LESA REID MD Common Visit Codes: [id number] INP/OBS CARE(HIGH) LESA REID MD Dec 06, 2024 12:20
[2024-12-06 13:44] LABS: Nucleated Red Blood Cells % 0.0 %
[2024-12-06 13:46] LABS: Hematocrit 22.7 % (36.0-46.0); Mean Corpuscular Hemoglobin 26.2 pg (28.0-32.0); Mean Corpuscular Volume 91.8 fL (80.0-100.0)
[2024-12-06 13:58] LABS: Hemoglobin 6.5 g/dL (12.2-16.2)
[2024-12-06 14:01] LABS: INR 1.71 (0.9-1.15); Prothrombin Time 17.2 sec (9.3-11.8)
[2024-12-06 14:02] LABS: Alkaline Phosphatase 94 U/L (46-116); Anion Gap 10 (5-15); BUN/Creatinine Ratio 11.7 (10.0-20.0); Calcium 9.5 mg/dL (8.7-10.4); Glucose 89 mg/dL (74-106); Potassium 3.9 mmol/L (3.5-5.1)
[2024-12-06 14:05] LABS: Alanine Aminotransferase < 9 U/L (7-40); Albumin 2.4 g/dL (3.2-4.8); Bilirubin, Total < 0.2 mg/dL (0.2-1.0); Blood Urea Nitrogen 28 mg/dL (9-23); Carbon Dioxide 12 mmol/L (20-31); Chloride 112 mmol/L (98-107); Sodium 134 mmol/L (136-145); Total Protein 5.5 g/dL (5.7-8.2)
--- NOTE | 2024-12-06 14:39 | DVH ---
INDICATION: Vaginal bleeding TECHNIQUE: Multiple real-time grayscale transabdominal sonographic images along with color and duplex Doppler of the uterus and ovaries were obtained. COMPARISON: None FINDINGS: The uterus measures 15.4 x 11.4 x 8.9 cm. The endometrial stripe measures 35 mm. The right ovary not visible The left ovary not visible IMPRESSION: 1. Suboptimal exam because of patient's history of C diff
--- NOTE | 2024-12-06 14:57 | DVH ---
Exam: CT CT AB PEL WO CON-NO ORAL OR IV History: gross hematuria, vaginal bleeding hx of bladder ca, hx DVT Comparison Study: None Technique: Multidetector spiral CT of the abdomen was performed from lung bases to pubic symphysis. I maging was performed without IV contrast. Axial, coronal and sagittal multiplanar reformats were obta ined from the axial data set by the technologist. Radiation Dose : 1. Abdomen/Pelvis: CTDIvol 5.07 mGy, DLP 290.12 mGy*cm. Findings: Evaluation of solid organs is limited due to lack of intravenous contrast use. Lung Bases: Dependent atelectasis. Bilateral breast prosthesis. Liver: The liver is normal in size. No focal lesions. Gallbladder and Biliary Tree: Unremarkable Spleen: Unremarkable Pancreas: The pancreas is grossly normal in appearance. Adrenal Glands: Unremarkable Kidneys: Moderate bilateral hydronephrosis. 0.3 cm nonobstructing stone in the left lower pole. Bladder: Grossly unremarkable for degree of distention. Bowel: The stomach is grossly normal in appearance. Small bowel and colon are normal in caliber and d istribution. The appendix is not visualized; however, no secondary findings of acute appendicitis bautista ntified. Ascites: Moderate ascites. Lymphadenopathy: Enlarged bilateral inguinal lymph nodes measuring up to 3.7 cm on the left. Suggesti on of pelvic lymphadenopathy. Abdominal Wall and Mesentery: Severe diffuse body wall edema. Moderate bilateral fluid containing ing uinal hernias. Vasculature: The visualized abdominal aorta is normal in size and caliber. Evaluation of abdominal a nd pelvic vessels is limited due to lack of intravenous contrast. Pelvic Organs: Suboptimally visualized. Musculoskeletal: No aggressive focal bony lesions, acute fractures or dislocation. IMPRESSION: Extremely limited examination secondary to lack of intravenous contrast administration, ascites and s evere diffuse body wall edema. There is also paucity of intra-abdominal fat limiting evaluation of in tra-abdominal structures. Pelvic organs are suboptimally visualized. Moderate bilateral hydronephrosis. Suggestion of bulky pelvic lymphadenopathy. Clinical correlation advised. Ultrasound or repeat CT with intravenous contrast could be considered t o further evaluate if clinically indicated.
--- NOTE | 2024-12-06 17:38 | DVH ---
US KIDNEY HISTORY: hydroneprhosis COMPARISON: None TECHNIQUE: Transverse and longitudinal grayscale and color doppler images were obtained of the kidney s and bladder. FINDINGS: Right kidney: Size: 12.6 cm Cortical thickness: Normal Echogenicity: Normal Stones: None Masses: None Hydronephrosis: yes Ureters: Not well visualized. Other: None Left kidney: Size: 11.5 cm Cortical thickness: Normal Echogenicity: Normal Stones: None Masses: None Hydronephrosis: yes Ureters: Not well visualized. Other: None Bladder: Not seen. Other: None. IMPRESSION: Moderate bilateral hydronephrosis with debris in the renal collecting system.
[2024-12-07 07:09] LABS: Hematocrit 28.5 % (36.0-46.0); Hemoglobin 8.9 g/dL (12.2-16.2); Mean Corpuscular Hemoglobin 25.3 pg (28.0-32.0); Mean Corpuscular Volume 80.9 fL (80.0-100.0)
--- NOTE | 2024-12-07 07:44 | ECG ---
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
[2024-12-07 08:42] LABS: Total Cells Counted 100.0 (100)
[2024-12-07 09:00] VITALS: PULSE 94; RESP 11; O2SAT 100
--- NOTE | 2024-12-07 13:04 | DVHPN2 ---
Reviewed: Care Plan, H&P, Labs, Medications, Previous Orders, Radiology Changes from previous H/P or p: No Changes Eyes: No Pain, No Vision change, No Conjunctivae inflammation, No Eyelid inflammation, No Other, No Redness ENT: No Ear pain, No Ear discharge, No Nose pain, No Nose discharge, No Nose congestion, No Mouth pain, No Mouth swelling, No Throat pain, No Throat swelling, No Other Cardiovascular: No Chest Pain, No Palpitations, No Orthopnea, No Paroxysmal Noc. Dyspnea, No Edema, No Lt Headedness, No Other Respiratory: No Cough, No Dry, No Shortness of breath, No SOB with excertion, No Wheezing, No Hemoptysis, No Pleuritic Pain, No Sputum, No Other Gastrointestinal: No Nausea, No Vomiting, No Abdominal Pain, No Diarrhea, No Constipation, No Melena, No Hematochezia, No Other Genitourinary: No Dysuria, No Frequency, No Incontinence, No Hematuria, No Retention; Other (Vaginal bleeding) Musculoskeletal: No other, No neck pain, No shoulder pain, No arm pain, No back pain, No hand pain, No leg pain, No foot pain Skin: No Rash, No Lesions, No Jaundice, No Bruising, No Other Objective Vitals Vital Signs Date Time Temp Pulse Resp B/P (MAP) Pulse Ox O2 Delivery O2 Flow Rate FiO2 12/07/24 12:03 92 12/07/24 09:00 11 115/76 (89) 100 12/07/24 09:00 Room Air* 0 21 12/06/24 23:43 97.6 97.6 Intake/Output Intake and Output 12/07/24 07:00 Intake Total 2035 ml Output Total 0 ml Balance 2035 ml Intake Oral 0 ml IV Total 1435 ml Blood Product 600 ml Output Urine Total 0 ml Medications Current Medications Medications Dose Ordered Sig/Fred Route Start Time Stop Time Status Last Admin Dose Admin Pantoprazole Sodium 40 mg DAILY IV 12/05/24 10:00 12/07/24 10:29 40 MG Dextrose 1,000 ml @ 75 mls/hr [id number] IV 12/05/24 01:00 12/07/24 12:05 75 MLS/HR Clindamycin Phosphate 50 ml @ 50 mls/hr Q8HR IV 12/05/24 06:00 12/06/24 21:48 50 MLS/HR Acetaminophen/ Hydrocodone Bitart 1 tab Q6HP PRN PO 12/05/24 13:00 12/07/24 08:49 1 TAB Ampicillin Sodium/ Sulbactam Sodium 3 gm/Sodium Chloride 100 ml @ 100 mls/hr Q12H IV 12/06/24 08:00 12/07/24 08:00 100 MLS/HR Diagnostic Test (Pha) 1 strip IQ4HR 12/06/24 04:00 12/07/24 12:24 1 STRIP Insulin Human Regular IQ4HR SC 12/06/24 04:00 Dextrose 50 ml UD PRN IV 12/06/24 03:30 Laboratory Results Laboratory Tests 12/06/24 13:35 12/07/24 06:44 Chemistry Test 12/06/24 13:35 Albumin 2.4 g/dL (3.2-4.8) L Calcium Level 9.5 mg/dL (8.7-10.4) Total Protein 5.5 g/dL (5.7-8.2) L Coagulation Test 12/06/24 13:35 Prothrombin Time 17.2 sec (9.3-11.8) H Prothrombin Time INR 1.71 (0.9-1.15) H LFT Test 12/06/24 13:35 Alanine Aminotransferase (ALT) < 9 U/L (7-40) Alkaline Phosphatase 94 U/L (46-116) Aspartate Amino Transferase (AST) 12 U/L (13-40) L Total Bilirubin < 0.2 mg/dL (0.2-1.0) L Urinalysis Test 12/05/24 16:07 Urine Color Colorless (Yellow) Urine Clarity Turbid (Clear) H Urine pH 5.5 (5.0-9.0) Urine Specific [place] 1.006 (1.001-1.035) Urine Protein Negative (Negative) Urine Ketones Negative (Negative) Urine Blood 3+ /uL (Negative) H Urine Nitrite Negative (Negative) Urine Bilirubin Negative (Negative) Urine Urobilinogen Normal mg/dL (Negative) Urine Leukocyte Esterase 1+ /uL (Negative) Urine Glucose Normal mg/dL (Normal) Microbiology Microbiology Date/Time Source Procedure Growth Status 12/05/24 15:14 Urine - Catheterized Urine Culture - Preliminary Resulted 12/05/24 13:35 Stool Stool Culture - Preliminary Resulted 12/05/24 13:35 Stool Shiga Toxin I & II - Final Resulted 12/04/24 15:45 Blood Blood Culture - Preliminary NO GROWTH AFTER 48 HOURS OF INCUBATION. Resulted Labs and/or images reviewed: Labs reviewed by me, Image(s) reviewed by me Assessment/Plan Assessment/Plan Severe sepsis unknown etiology: Blood cultures negative, urine cultures pending, continue Unasyn and clindamycin CHUY due to VMN Severe anemia hemoglobin 7.9 History of stage IV bladder cancer under chemo at [place] urology consult by Dr. Larson appreciated Gross hematuria urology consult appreciated ; three-way continuous bladder irrigation Acute lactic acidosis with lactic acid 2.2 Vaginal bleeding consult for pelvic ultrasound inconclusive Radiation cystitis Anticoagulant effect Failure to thrive Patient not stable for transfer to [place] as the patient currently has severe sepsis Check serum beta HCG Time spent 70 minutes Advanced care planning time 20 minutes Patient not stable for transfer to [place] Plan discussed with: Patient, Spouse My Orders Orders - LESA REID MD Procedure Category Date Status Time * [employer] Supervisor CONS 12/07/24 Transmitted Consult Date of Service: Dec 07, 2024 Billing Provider: LESA REID MD Common Visit Codes: [id number] CARE 30-74 MIN LESA REID MD Dec 07, 2024 13:04
--- NOTE | 2024-12-07 14:32 | DVHDS2 ---
Discharge Summary Date of Admission Dec 04, 2024 at 23:42 Date of Discharge: Dec 07, 2024 Admitting Diagnosis Altered Mental status and generalized weakness Wounds: None Labs/Diagnostic Data: Laboratory Results Test 12/07/24 12:22 12/07/24 06:44 12/06/24 13:35 12/06/24 04:09 POC Glucose 87 mg/dl (70-106) White Blood Count 47.6 10^3/uL (4.4-10.8) Red Blood Count 3.53 10^6/uL (4.0-5.20) Hemoglobin 8.9 g/dL (12.2-16.2) Hematocrit 28.5 % (36.0-46.0) Mean Corpuscular Volume 80.9 fL (80.0-100.0) Mean Corpuscular Hemoglobin 25.3 pg (28.0-32.0) Mean Corpuscular Hemoglobin Concent 31.3 g/dL (32.0-36.0) Red Cell Distribution Width 20.5 % (11.8-14.3) Platelet Count 501 10^3/uL (140-450) Mean Platelet Volume 7.3 fL (6.9-10.8) Neutrophils (%) (Auto) % (37.0-80.0) Lymphocytes (%) (Auto) % (10.0-50.0) Monocytes (%) (Auto) % (0.0-12.0) Basophils (%) (Auto) % (0.0-2.0) Neutrophils # (Auto) 10 ^3/uL (1.6-8.6) Lymphocytes # (Auto) 10 ^3/uL (0.4-5.4) Monocytes # (Auto) 10 ^3/uL (0-1.3) Differential Total Cells Counted 100.0 (100) Neutrophils % (Manual) 91 (37.0-80.0) Band Neutrophils % (Manual) 1 Lymphocytes % (Manual) 4 (10.0-50.0) Monocytes % (Manual) 3 (0-12) Eosinophils % (Manual) 1 (0-7) Basophils % (Manual) 0 (0.0-2.0) Metamyelocytes % (manual) 0 Myelocytes % (Manual) 0 Promyelocytes % (Manual) 0 Blast Cells % (Manual) 0 Reactive Lymphocytes 0 Platelet Estimate Increased Eosinophils (%) (Auto) 0.3 % (0.0-7.0) Eosinophils # (Auto) 0.1 10 ^3/uL (0-0.8) Basophils # (Auto) 0.1 10 ^3/uL (0-0.2) Nucleated Red Blood Cells 0.0 % Prothrombin Time 17.2 sec (9.3-11.8) Prothrombin Time INR 1.71 (0.9-1.15) Sodium Level 134 mmol/L (136-145) Potassium Level 3.9 mmol/L (3.5-5.1) Chloride Level 112 mmol/L (98-107) Carbon Dioxide Level 12 mmol/L (20-31) Anion Gap 10 (5-15) Blood Urea Nitrogen 28 mg/dL (9-23) Creatinine 2.39 mg/dL (0.550-1.02) Glomerular Filtration Rate Calc 26 mL/min (>90) BUN/Creatinine Ratio 11.7 (10.0-20.0) Serum Glucose 89 mg/dL (74-106) Calcium Level 9.5 mg/dL (8.7-10.4) Total Bilirubin < 0.2 mg/dL (0.2-1.0) Aspartate Amino Transferase (AST) 12 U/L (13-40) Alanine Aminotransferase (ALT) < 9 U/L (7-40) Alkaline Phosphatase 94 U/L (46-116) Total Protein 5.5 g/dL (5.7-8.2) Albumin 2.4 g/dL (3.2-4.8) Hemoglobin A1c 5.2 % A1C (<5.7) Test 12/05/24 16:07 12/05/24 13:35 12/05/24 10:00 12/05/24 09:20 Urine Color Colorless (Yellow) Urine Clarity Turbid (Clear) Urine pH 5.5 (5.0-9.0) Urine Specific [place] 1.006 (1.001-1.035) Urine Protein Negative (Negative) Urine Ketones Negative (Negative) Urine Blood 3+ /uL (Negative) Urine Nitrite Negative (Negative) Urine Bilirubin Negative (Negative) Urine Urobilinogen Normal mg/dL (Negative) Urine Leukocyte Esterase 1+ /uL (Negative) Urine Glucose Normal mg/dL (Normal) Stool Occult Blood Positive (Negative) Stool Occult Blood Sample #3 (Negative) Influenza Type A Antigen Negative (Negative) Influenza Type B Antigen Negative (Negative) SARS-CoV-2 Antigen (Rapid) Negative (NEGATIVE) Ammonia 32 umol/L (11-32) Beta HCG, Quantitative 34.6 mIU/mL (1.5-4.2) Test 12/04/24 18:02 Lactic Acid Level 1.2 mmol/L (0.4-2.0) Other Laboratory Tests 12/07/24 06:44 12/06/24 13:35 Brief Hx & Hospital Course: 39-year-old female with a history of stage IV bladder cancer under chemo at [facility] brought in for altered mental status generalized weakness. Found to have severe anemia hemoglobin 6.5. Improved to 7.9 after 1 unit RBC transfusion. [place] [id number] possibly secondary to radiation cystitis. She was also having vaginal bleeding seen by soft work wrapper layer and examiner Dr Jean-Baptiste. He was also seen by Urology Dr. Larson and patient has had three-way bladder irrigation for gross hematuria. The patient had elevated lactic acid 2.2 received IV fluids. Cardiology) for sepsis. She has a marginally improved more alert and awake with a stable vital signs at the time of transfer to [facility]. [facility] requested for the patient to be transferred to [facility]. Boyfriend at the bedside patient agrees for transfer orders placed Condition at Discharge: Poor Final Diagnosis/Problems List Severe sepsis unknown etiology: Blood cultures negative, urine cultures pending, continue Unasyn and clindamycin CHUY due to VMN Severe anemia hemoglobin 7.9 History of stage IV bladder cancer under chemo at [facility] urology consult by Dr. Larson appreciated Gross hematuria urology consult appreciated ; three-way continuous bladder irrigation Acute lactic acidosis with lactic acid 2.2 Vaginal bleeding consult for pelvic ultrasound inconclusive Radiation cystitis Anticoagulant effect Failure to thrive Discharge Disposition: Acute Care Facility Discharge Instruct/Medications Diet: Cardiac 2g Na,low cholest Activity: Bed rest Follow Up/Referral: Follow up with the [facility] Medications: see list 39 (Time taken for discharge summary 39 minutes) Discharge Statement: "Patient was advised to return to the ER or call 911 if any headaches, dizziness, shortness of breath, chest pain, abdominal pain, bleeding, fevers, or worsening of medical condition. Patient was counseled about treatment plan, medications, possible side effects, patientverbalized understanding. All questions were answered to the best of my ability. This discharge took greater then 30 minutes in planning, reviewing documentation, counseling the patient, and discussing with other team members." ASSESSMENT ASSESSMENT Hospital Course Improved marginally Assessment Severe sepsis unknown etiology: Blood cultures negative, urine cultures pending, continue Unasyn and clindamycin CHUY due to VMN Severe anemia hemoglobin 7.9 History of stage IV bladder cancer under chemo at [facility] urology consult by Dr. Larson appreciated Gross hematuria urology consult appreciated ; three-way continuous bladder irrigation Acute lactic acidosis with lactic acid 2.2 Vaginal bleeding consult for pelvic ultrasound inconclusive Radiation cystitis Anticoagulant effect Failure to thrive Date of Service: Dec 07, 2024 Billing Provider: LESA REID MD Common Visit Codes: 33199-ICI/OBS DISCH DAY >30min LESA REID MD Dec 07, 2024 14:32
[2024-12-07 17:00] VITALS: BP 118/82; PULSE 113; RESP 93; TEMP 97.5; O2SAT 18
== END 2024-12-07 14:45 | disposition short-term general hospital (02) | DRG 720 ==
LOC: EDBD 15:20 → ER 15:27 → OVERFLOW 23:42
PROVIDERS: ADMIT Family Medicine; ATTEND Family Medicine
PROC: 30233N1 Transfusion of Nonautologous Red Blood Cells into Peripheral Vein, Percutaneous Approach (ICD-10-PCS; principal; 2024-12-06)
DX: A41.9 Sepsis, unspecified organism (principal); N17.0 Acute kidney failure with tubular necrosis; R65.21 Severe sepsis with septic shock; E87.21 Acute metabolic acidosis; N13.30 Unspecified hydronephrosis; C67.9 Malignant neoplasm of bladder, unspecified; D64.9 Anemia, unspecified; N30.41 Irradiation cystitis with hematuria; R62.7 Adult failure to thrive; N93.9 Abnormal uterine and vaginal bleeding, unspecified; Z20.822 Contact with and (suspected) exposure to COVID-19; T45.515A Adverse effect of anticoagulants, initial encounter; Z68.1 Body mass index [BMI] 19.9 or less, adult; Z87.440 Personal history of urinary (tract) infections; Z79.01 Long term (current) use of anticoagulants; Z86.718 Personal history of other venous thrombosis and embolism; Y92.89 Other specified places as the place of occurrence of the external cause
CPT/HCPCS: 36415; 70450; 71045; 74176; 76775; 76856; 80048; 80053; 81003; 82140; 82270; 82962; 83036; 83605; 84702; 85007; 85025; 85027; 85610; 86850; 86900; 86901; 86920; 87040; 87045; 87086; 87088; 87186; 87426; 87427; 87804; 93005; 93971; 96365; 96375; 99291; 99292; G0378; J2470; J3490; P9047